=== PATIENT | male | born 1960 | race Caucasian/White ===

== ENCOUNTER 2021-03-01 06:03 | Day surgery (SDC) | payer OTHER, SELFPAY ==
[2021-03-01 06:20] VITALS: BP 136/89; PULSE 74; RESP 16; TEMP 36.5; O2SAT 98
[2021-03-01] MEDS: Lactated Ringers 1,000 ML 80 ML IV (06:43)
--- NOTE | 2021-03-01 06:55 | W.ANESPRE ---
General Info Date of Service Date Performed: 03/01/21 Height: 5 ft 4 in Weight: 100.4 kg Body Mass Index (BMI): 38.0 Surgical Procedure: Operation Date: 03/01/21 07:40 Proposed Procedures Side Surgeon p Wrist ECTR, LRF Trigger Release Left David Hercules MD Meds Allergies and Home Medications Allergies Allergy/AdvReac Type Severity Reaction Status Date / Time No Known Allergies Allergy Verified 03/01/21 06:32 Home Medication Medication Instructions Recorded atorvastatin 80 mg tablet 80 mg PO DAILY 01/24/21 metoprolol tartrate 25 mg tablet 25 mg PO DAILY 01/24/21 ramipril 2.5 mg tablet 2.5 mg PO BID 01/24/21 Current Visit Medications: Current Medications Generic Name Dose Route Start Last Admin Trade Name Freq PRN Reason Stop Dose Admin Ringer's Solution 1,000 mls @ 80 mls/hr 03/01/21 06:00 03/01/21 06:43 IV 03/30/21 23:59 80 mls/hr INFUSION NELY Administration Cefazolin Sodium 2,000 mg/ 100 mls @ 200 mls/hr 03/01/21 06:00 Sodium Chloride IVPB 03/01/21 23:59 PREOP NELY IV Miscellaneous Supplies 1 each 03/01/21 06:00 Iv Access IV 03/30/21 23:59 DIRECTED NELY Sodium Chloride 0 ml 03/01/21 06:00 Normal Saline Flush 10 Ml Syr IV 03/30/21 23:59 PRN PRN Sodium Chloride 0 ml 03/01/21 06:00 Normal Saline 10 Ml Vial IJ 03/30/21 23:59 DIRECTED PRN Sterile Water 0 ml 03/01/21 06:00 Water,Injection,Sterile 10 Ml Vial IJ 03/30/21 23:59 DIRECTED PRN PFSH Active Problems Active Problems: Problem Status Onset Code Hypertension I10 Numbness and tingling in left hand R20.0, R20.2 Left hand weakness R29.898 Trigger finger of left hand M65.30 Left carpal tunnel syndrome G56.02 Medical History Medical History History of [place] (myocardial infarction) Per pt. states 15 years in [facility]-Pt. 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 states this was placed in [facility] Tobacco Smoking/Tobacco Use Status: Former Tobacco Use Alcohol Alcohol Intake: current Alcohol intake frequency: a few times a week Alcohol type: beer Counseling provided: none Substance Use Substance use: Never Substance use type: does not use Vital Signs and Lab Results Vital Signs Most Recent Vital Signs in EMR: Most Recent Vital Signs Temp Pulse Resp BP Pulse Ox 36.5 C 74 16 136/89 98 03/01/21 06:20 03/01/21 06:20 03/01/21 06:20 03/01/21 06:20 03/01/21 06:20 Lab Results Blood Type / Crossmatch: No Data to Display Complete Blood Count: No Data to Display Complete Metabolic Panel: No Data to Display Liver Function Panel: No Data to Display Coagulation Panel: No Data to Display Cardiac Panel: No Data to Display Arterial Blood Gas: No Data to Display Venous Blood Gas: No Data to Display Pancreas Panel: No Data to Display Thyroid Panel: No Data to Display Infectious Disease: No Data to Display Blood Cultures: No Data to Display Toxicology Panel: No Data to Display Anesthesia Assessment and Plan Anesthesia History Personal History: No History of Anesthesia Complications Family History: No Family History of Anesthesia Complications Exercise Tolerance Exercise Tolerance: Metabolic Equivalents>4 Pertinent Negatives Pertinent Negatives: No Symptoms of GERD, No Major Cardiovascular Symptoms or Complaints, No Major Pulmonary Symptoms or Complaints and No History of CVA/TIA Cardiac & Pulmonary Exam Cardiac Exam: Normal S1/S2 Heart Sounds Pulmonary Exam: Clear Bilateral Breath Sounds Airway Exam Known Difficult Airway: No Mallampati Class: 3 Mouth Opening: Normal (> 3cm) Thyromental Distance: Greater than 3 cm Neck Range of Motion: Full ROM Neck Circumference: Normal Teeth Condition: Removable Dentures/Plates Upper, Removable Dentures/Plates Lower and Edentulous ASA Classification ASA Score: ASA 2 Emergency Case?: No NPO Status NPO Status: NPO Clears >2 hours, Solids >8 hours Anesthesia Plan Resuscitation Status: Full Code Anesthesia Technique: General Anesthesia Airway Planned: Natural Airway Monitors Used: Standard Monitors
[2021-03-01 06:57] VITALS: BMI 38.0
--- NOTE | 2021-03-01 07:14 | PDOC.DSDIS_ITS ---
Discharge Plan Disposition Patient Disposition: HOME Condition: Good Discharge Details Reason For Visit: Left ECTR and Trigger Finger Release Attending Provider: David Hercules Primary Care Provider: None,None Home Meds and New Rx's Prescriptions: New hydrocodone-acetaminophen 5-325 mg tablet 1 tab PO Q6H PRNQty: 3 RF: 0 acetaminophen [Tylenol Extra Strength] 500 mg tablet 500 mg PO Q6H PRNQty: 30 RF: 0 ibuprofen 600 mg tablet 600 mg PO TID Qty: 30 RF: 0 Continued ramipril 2.5 mg tablet 2.5 mg PO BID RF: 0 atorvastatin 80 mg tablet 80 mg PO DAILY RF: 0 metoprolol tartrate 25 mg tablet 25 mg PO DAILY RF: 0 Discharge Instructions Stand Alone Forms: [place] C. Tunnel Release, [place] T. Finger Release Referrals: David Hercules MD [ [facility] STAFF PHYSICIAN] - Activity:: Activity as Tolerated Remove Dressings/Wound Care:: 72 hours Shower/Bathe:: 72 hours Diet:: As Tolerated Discharge Orders Discharge Orders: Discharge Order (Routine); Ordered 03/01/21 Ordered By: Bonnie Ramirez DS: Diagnosis Discharge Diagnosis (1) Trigger finger of left hand: Status: Acute (2) Left carpal tunnel syndrome: Status: Acute
--- NOTE | 2021-03-01 07:29 | W.PREOPHP ---
Date of service: 03/01/21 Time of Service: 07:29 Assessment and Plan Assessment and plan (1) Trigger finger of left hand: Status: Acute Qualifiers: Trigger finger location: ring finger Qualified Code(s): M65.342 - Trigger finger, left ring finger (2) Left carpal tunnel syndrome: Status: Acute Assessment and plan: Karissa is a 60-year-old who has a carpal tunnel of the left side as well as a trigger finger of the left ring finger. Please see the previous clinical notes for details. However, at this point desires to proceed with surgical intervention. I reviewed the risk of the procedure to include bleeding, infection, pain, stiffness, damage to nerves and vessels, persistent numbness, recurrence, persistent stiffness. Despite these risk, he elects to proceed. He was COVID-19 tested and negative. History of Present Illness History of Present Illness Chief Complaint: Left Carpal Tunnel Syndrome, Left Ring Trigger Finger Narrative: Karissa is a 60-year-old who is here for left carpal tunnel and left trigger finger of the ring finger. Please see the office note for complete details of his clinical history. He reports no sick contacts. He is in no change to his health. Has no chest pain or shortness of breath. Review of Systems All systems reviewed & are unremarkable except as noted in HPI and below PFSH Medical History History of [place] (myocardial infarction) Per pt. states 15 years in [facility]-Pt. 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 Pets and animals: Yes Pets and animals: dog(s) Current gender identity: male What type of physical activity do you participate in: none Seatbelt use: always Do you feel safe at home: Yes Do you feel safe in your relationship?: Yes Meds Allergies and Home Medications Allergies Allergy/AdvReac Type Severity Reaction Status Date / Time No Known Allergies Allergy Verified 03/01/21 06:32 Home Medications Medication Instructions Recorded Confirmed Type atorvastatin 80 mg tablet 80 mg PO DAILY 01/24/21 03/01/21 History metoprolol tartrate 25 mg tablet 25 mg PO DAILY 01/24/21 03/01/21 History ramipril 2.5 mg tablet 2.5 mg PO BID 01/24/21 03/01/21 History acetaminophen [Tylenol Extra 500 mg PO Q6H PRN #30 tab 03/01/21 Rx Strength] hydrocodone-acetaminophen 1 tab PO Q6H PRN #3 tab 03/01/21 Rx ibuprofen 600 mg PO TID #30 tab 03/01/21 Rx Exam Const General: cooperative, healthy appearing, comfortable and no acute distress Orientation: alert, awake and oriented x3 Resp Auscultation: clear to auscultation bilaterally Cardio Rate: regular rate Rhythm: regular rhythm Results Last Vital Signs Temp 36.5 C 03/01/21 06:20 Pulse 74 03/01/21 06:20 Resp 16 03/01/21 06:20 BP 136/89 03/01/21 06:20 Pulse Ox 98 03/01/21 06:20
[2021-03-01] MEDS: ceFAZolin 2,000 MG in Normal Saline 100 ML 200 MG IVPB (07:43)
[2021-03-01] MEDS: Sodium Bicarbonate 50 MEQ/50 ML VIAL (07:56)
--- NOTE | 2021-03-01 07:59 | W.PM.OP ---
Date of service: 03/01/21 Time of Service: 07:59 Operative Note Operative Note DATE OF PROCEDURE: 03/01/21 PRE-OP DIAGNOSIS: Left Carpal Tunnel Syndrome, Left Ring Finger Trigger Finger POST-OP DIAGNOSIS: same PROCEDURE: Left Endoscopic Carpal Tunnel Release, Left Ring Finger A1 Savita Release SURGEON: David Hercules ANESTHESIA TYPE: General:No Airway Refer to Anesthesia Record ESTIMATED BLOOD LOSS: 0 PATHOLOGY: none sent TOURNIQUET TIME: 6 COMPLICATIONS: None Patient was transported to: same day Patient's condition: stable Indications: I have seen Karissa in clinic for symptoms of carpal tunnel syndrome. The numbness, tingling, and pain limited function. Clinical exam findings with nerve conduction tests confirmed the diagnosis of carpal tunnel syndrome. He also had a clinical diagnosis of trigger finger of the ring finger with locking, clincking, and pain. Nonoperative measures such as bracing, time, activity modifications had been tried but disability and pain persisted. I discussed carpal tunnel release along with ring finger trigger finger release with the patient. I reviewed the risks of the procedure to include, but not limited to, bleeding, infection, pain, stiffness, incomplete release, damage to nerves or vessels, persistent numbness, recurrence. Despite these risks, the patient elected to proceed. Findings: There was tightened carpal tunnel. This was dilated and released successfully with the endoscopic with increased space within the tunnel. The antebrachial fascia was released proximally freeing the median nerve at the wrist. The A1 savita of the ring finger was tight as well and was successfully released; tendons were without significant disease or pathology. Procedure Description: Karissa was greeted in the preoperative holding area where the correct side was identified and marked. The consent was reviewed with the patient and signed. The history and physical was updated. All questions were answered. He was taken back to the operating room. The patient was placed into the supine position on the operating room table with the left arm on an arm board. A nonsterile tourniquet was placed high onto the arm. All bony prominences were well padded. Prophylactic antibiotics in the form of Cefazolin were administered. The left arm was then prepped with Chloraprep and draped in a standard fashion with stockinette and extremity drape. A timeout to confirm correct identity, side and site, procedure, allergies, anesthesia, and medical concerns was performed. The surgical site was marked in the volar wrist creases in line with the radial border of the fourth ray as well as overlying the ring finger MCP joint/ A1 savita. This area was anesthetized with approximately 10cc of 1% Lidocaine with epinephrine. The limb was then exsanguinated with an Esmarch. The skin was incised with a 15 blade, approximately 1cm. The skin only was cut and the deeper tissue was dissected bluntly with a tenotomy scissor, avoiding passing nerve and venous structures. The fascia was penetrated and opened bluntly. A two-prong skin hook was placed under this proximal fascial edge. A series of hamate finders were used to identify and dilate the carpal tunnel. Synovial elevator was used to free synovial attachments to the underside of the transverse carpal ligament. My thumb was kept in the palm to varun the distal extent of the carpal tunnel and correctly position the hand. The Microaire endoscope was inserted without difficulty and without resistance. Excellent visualization showed horizontally running fibers of the transverse carpal ligament (TCL). The distal extent of the TCL was visualized and the end of the scope palpated with the thumb. The blade was elevated and withdrawn from distal to proximal. The TCL was split into two flaps. The endoscope was reinserted to confirm complete release and any remnant ligament was incised. The scope was withdrawn and the proximal aspect of the carpal tunnel was grossly inspected and appeared release with the median nerve visible. The antebrachial fascia at the level of the wrist was then freed from the overlying skin and then the underlying median nerve with blunt dissection. This was transected longitudinally for about 3cm proximal to the wrist incision. The wound was then irrigated with easy flow of irrigant distally and proximally. The incision was closed with a single 4-0 Nylon suture. Attention was then turned to the ring finger. The previously marked incision was incised sharply through the skin. Dissection was carried down through the subcutaneous tissue. Ragnell retractors were placed to retract any tissue and structures medially and laterally with good exposure of the underlying A1 savita and flexor tendon sheath. The proximal edge of the A1 savita was identified and the A1 savita was released with a tenotomy scissors. There was notable tightness of the A1 savita. However, there is no underlying pathology of the tendons appreciated. Proximal and distal extents of the wound were inspected which showed no signs of restricted tissue. A blunt hemostat was inserted into the wound and retracted the tendons out of the wound. The tendons were inspected and showed no signs of significant tenosynovitis or tearing. The tendons were returned. Once again a second look was performed proximal and distal. There were no restricted bands of tissue. The wound was then irrigated. The skin was closed with a 4-0 nylon suture. The wounds were dressed with Xeroform, Gauze, Kerlix and Nitesh. The tourniquet was deflated with the initial dressing and held with some pressure. Blood flow returned easily to all digits with capillary refill less than 2 seconds. The patient tolerated the procedure well and was returned to the Same Day Surgery area in a stable condition suffering no known complication.
[2021-03-01 08:03] VITALS: BP 126/85; PULSE 78; RESP 16; TEMP 36.3; O2SAT 97
--- NOTE | 2021-03-01 08:16 | W.ANESPOSTOP ---
Postoperative Evaluation Date, Time and Location Date Performed: 03/01/21 Time Performed: 08:05 Patient Location: Day Surgery Unit Vital Signs Most Recent Imported Vital Signs: Most Recent Vital Signs Temp Pulse Resp BP Pulse Ox 36.3 C L 78 16 126/85 97 03/01/21 08:03 03/01/21 08:03 03/01/21 08:03 03/01/21 08:03 03/01/21 08:03 Pain Score Most Recent Pain Score: Most Recent Pain Score Pain Level 0 03/01/21 08:03 Assessment Mental Status: Awake (Alert & Oriented to Patient Baseline) Airway and Respiratory Function: Patent airway with normal (patient baseline) respiratory exam Cardiovascular Function: Hemodynamically Stable Hydration Status: Adequately Hydrated Nausea & Vomiting: No Nausea or Vomiting Pain: Pt. Denies Any Pain Peripheral Nerve Block: Patient did not receive a nerve block
[2021-03-01 08:34] VITALS: BP 112/71; PULSE 68; RESP 18; TEMP 36.2; O2SAT 98
== END 2021-03-01 08:45 | disposition home or self-care (01) ==
PROVIDERS: Visit Provider Student in an Organized Health Care Education/Training Program
PROC: 01N54ZZ Release Median Nerve, Percutaneous Endoscopic Approach (ICD-10-PCS; CPT 29848; principal; 2021-03-01 07:30)
DX: M65.342 Trigger finger, left ring finger (principal); G56.02 Carpal tunnel syndrome, left upper limb
CPT/HCPCS: 29848; 26055; J0690; J1885; J2704; J3010